=== PATIENT | female | born 1985 | race Caucasian/White ===

== ENCOUNTER 2024-04-18 19:37 | Emergency (ER) | payer MEDICARE, OTHER, SELFPAY ==
[2024-04-18 19:43] VITALS: BP 136/91
--- NOTE | 2024-04-18 20:11 | ED.GENMED ---
History of Present Illness
<Chema Pino PA-C - Last Filed: 04/20/24 17:59>
General
Chief Complaint: Crisis Evaluation
Source: patient and police
Time Seen by Provider: 04/18/24 20:03
Travel History
Have you had any contact with someone who has COVID-19?: No
Do you have any symptoms of coronavirus? Fever > 100 degrees, chills, cough, shortness of breath, sore throat, loss of taste or smell, muscle aches, or headache?: No
History of Present Illness
History of Present Illness:
38-year-old female with reported past medical history of bipolar disorder presenting to the emergency department with police after patient was found outside her house by her doing yoga naked in their front yard. Patient reportedly yelling
at multiple people and was not making sense. Family is filing a 302. Patient is not on any medications for psychiatric illness. Her only for this time is she is very hungry. No other physical concerns and she denies any alcohol or drug use
outside of her medical marijuana.
Past History
<Chema Pino PA-C - Last Filed: 04/20/24 17:59>
Past History
ED Past Medical History: Psychiatric and Other (PCOS, Peptic ulcers, Ovarian cyst, chronic neck and r shoulder pain on Vicodin)
ED Past Surgical History: and Other (Gastric bypass)
Social History
Tobacco: Non-smoker
Alcohol: Occasional
Drug: None
Personal: Single
Living: with family
Employment: Not employed
Review of Systems
<Chema Pino PA-C - Last Filed: 04/20/24 17:59>
Review of Systems
All Other Systems: ROS reviewed and negative except as documented in HPI and ROS
Phy Exam
<Chema Pino PA-C - Last Filed: 04/20/24 17:59>
Physical Exam
Physical Exam:
GENERAL: Alert , pacing in room, difficult time sitting still, very fidgety, rapid and pressured speech, appears manic
EYE: conjunctiva clear
NECK: Supple, no significant adenopathy.
ENT: o/p clr, mmm.
CARDIAC: Regular rate and rhythm
LUNGS: Clear breath sounds bilaterally, no acute respiratory distress, no wheezes/rales/rhonchi
NEUROLOGICAL: Alert and oriented
SKIN: Warm and dry, skin intact.
MUSCULOSKELETAL: well perfused.
PSYCH: Normal and appropriate interaction.
Scores
<Chema Pino PA-C - Last Filed: 04/20/24 17:59>
Heart Failure Risk
Heart Failure Risk Score: Not Applicable
Heart Score for Chest Pain Patients
STEMI patient?: Not applicable
Withdrawal Assessment of Alcohol
Withdrawal Assessment Completed?: Not applicable
Course
<Chema Pino PA-C - Last Filed: 04/20/24 17:59>
Orders/Labs/Results
Orders:
Orders
04/18/24 20:07
Ziprasidone [Geodon] 40 mg PO NOW STA
04/18/24 20:10
Crisis Consult Routine
Reason for Consult: 302. bipolar with valerio
Test Result ONCE
04/18/24 20:23
Olanzapine [Zyprexa] 10 mg IM NOW STA
04/18/24 20:24
Olanzapine [Zyprexa] 10 mg .ROUTE .STK-MED ONE
04/18/24 20:32
Alcohol Urgent
Complete Blood Count/With Diff Urgent
Comprehensive Metabolic Panel Urgent
HCG, Serum Qualitative Screen Urgent
Comment: ADD ON
04/18/24 20:38
Add On- LAB Urgent
Tests Added?: hcg qualitative
04/19/24 07:09
Potassium Chloride [KCl] 40 meq PO NOW STA
Abnormal Lab Results
04/18/24
20:32
Hct 34.7 L %
(37.0-47.0)
MCV 75.3 L fL
(81.0-99.0)
MCH 26.0 L pg
(27.0-31.0)
RDW 15.1 H %
(11.5-14.5)
Absolute Neuts (auto) 7.2 H 10^3/uL
(1.4-6.5)
Neutrophils % 76.7 H %
(42.2-75.2)
Lymphocytes % 16.3 L %
(20.5-51.1)
Potassium 2.8 L mmol/L
(3.5-5.1)
Carbon Dioxide 17 L mmol/L
(22-30)
BUN 18 H mg/dl
(7-17)
Creatinine 1.1 H mg/dL
(0.6-1.0)
Glucose 117 H mg/dl
(70-99)
AST 124 H U/L
(14-36)
ALT 65 H U/L
(0-35)
Albumin 5.1 H g/dl
(3.5-5.0)
04/18/24 20:32
04/18/24 20:32
Vital Signs
Initial and Last Documented VS:
Initial Vital Signs
Temp Pulse Resp BP Pulse Ox
99 F 68 16 136/91 97
04/18/24 19:43 04/18/24 19:43 04/18/24 19:43 04/18/24 19:43 04/18/24 19:43
Last Documented Vital Signs
Temp Pulse Resp BP Pulse Ox
99 F 82 20 146/90 97
04/18/24 19:43 04/19/24 06:59 04/19/24 06:59 04/19/24 06:59 04/18/24 19:43
<Maxine Cao MD - Last Filed: 04/19/24 01:33>
Orders/Labs/Results
Orders:
Orders
04/18/24 20:07
Ziprasidone [Geodon] 40 mg PO NOW STA
04/18/24 20:10
Crisis Consult Routine
Reason for Consult: 302. bipolar with valerio
Test Result ONCE
04/18/24 20:23
Olanzapine [Zyprexa] 10 mg IM NOW STA
04/18/24 20:24
Olanzapine [Zyprexa] 10 mg .ROUTE .STK-MED ONE
04/18/24 20:32
Alcohol Urgent
Complete Blood Count/With Diff Urgent
Comprehensive Metabolic Panel Urgent
HCG, Serum Qualitative Screen Urgent
Comment: ADD ON
04/18/24 20:38
Add On- LAB Urgent
Tests Added?: hcg qualitative
04/19/24 07:09
Potassium Chloride [KCl] 40 meq PO NOW STA
Abnormal Lab Results
04/18/24
20:32
Hct 34.7 L %
(37.0-47.0)
MCV 75.3 L fL
(81.0-99.0)
MCH 26.0 L pg
(27.0-31.0)
RDW 15.1 H %
(11.5-14.5)
Absolute Neuts (auto) 7.2 H 10^3/uL
(1.4-6.5)
Neutrophils % 76.7 H %
(42.2-75.2)
Lymphocytes % 16.3 L %
(20.5-51.1)
Potassium 2.8 L mmol/L
(3.5-5.1)
Carbon Dioxide 17 L mmol/L
(22-30)
BUN 18 H mg/dl
(7-17)
Creatinine 1.1 H mg/dL
(0.6-1.0)
Glucose 117 H mg/dl
(70-99)
AST 124 H U/L
(14-36)
ALT 65 H U/L
(0-35)
Albumin 5.1 H g/dl
(3.5-5.0)
04/18/24 20:32
04/18/24 20:32
Vital Signs
Initial and Last Documented VS:
Initial Vital Signs
Temp Pulse Resp BP Pulse Ox
99 F 68 16 136/91 97
04/18/24 19:43 04/18/24 19:43 04/18/24 19:43 04/18/24 19:43 04/18/24 19:43
Last Documented Vital Signs
Temp Pulse Resp BP Pulse Ox
99 F 82 20 146/90 97
04/18/24 19:43 04/19/24 06:59 04/19/24 06:59 04/19/24 06:59 04/18/24 19:43
<Chema Pino PA-C - Last Filed: 04/20/24 17:59>
MDM/Problems Addressed
Differential Diagnosis Includes:
Bipolar disorder with valerio, alcohol or drug ingestion, patient denying any suicidal ideations
MDM/Problems Addressed:
38-year-old female presenting emergency department with police with family filing a 302. Patient with history of bipolar disorder but is not currently on any medications. She certainly has the appearance of being manic at present time. Patient is
requesting something to help with her anxiety presently. She is having a difficult time sitting still in the room. Will give a dose of p.o. Geodon for agitation. Crisis team was notified and they are in the process of filing the 302 presently.
Chronic conditions affecting care: Psychiatric illness
Acute Exacerbation and/or Progression of Chronic Illness: Psychiatric illness
<Chema Pino PA-C - Last Filed: 04/20/24 17:59>
*Pulse Oximetry
Patient hypoxic: no
*Critical Care Note
Total Time (30-74mins, 75-104mins- exclusive of procedures): Not Applicable
<Chema Pino PA-C - Last Filed: 04/20/24 17:59>
Comment
Comment:
8:24 PM: Patient verbally aggressive with nursing staff while attempting IV stick. Unable to get labs at this time. Due to patient's agitation oral medication was discontinued and will trial IM Zyprexa. If patient continues with her verbal
escalation as well as physical threats may require restraints. Reassessment following medication
8:49 PM: Patient was redirectable and allowed for blood draw. She still appears manic and having a difficult time sitting but is declining meds. Will have low threshold to still order medication. Awaiting telepsych consultation
ED Attending Note
<Chema Pino PA-C - Last Filed: 04/20/24 17:59>
-
Portions of this chart may have been created with voice recognition software.� Occasional wrong word or��sound alike� substitutions may have occurred due to the inherent limitations of voice recognition software.
<Maxine Cao MD - Last Filed: 04/19/24 01:33>
ED Attending Note
Patient seen and examined by attending physician: Yes
I performed the substantive portion of visit, reviewed & personally made and approve the management plan that is documented in note by myself or LUIS EDUARDO.: Yes
ED Attending Note:
302 upheld by me status post telehealth evaluation, we are both in agreement with mother's concerns regarding patient's erratic behavior. Recommend inpatient gastric care. Patient stable at this time and behaviorally cooperative.
Discharge Plan
Departure
Patient Disposition: Psych Facility
Date of Disposition: 04/19/24
Time of Disposition: 01:32
Condition: Fair
Discharge Problem:
VALERIO
Prescriptions:
No Action
acetaminophen 325 MG tablet
650 mg PO Q4HPRN PRN (Reason: mild pain) 0RF
ibuprofen 600 MG tablet
600 mg PO Q4HPRN PRN (Reason: cramps) 0RF
hydromorphone 2 MG tablet
2 mg PO Q4HPRN PRN (Reason: moderate pain) Qty: 20 0RF
clindamycin HCl 300 mg capsule
300 mg PO TID 10 Days Qty: 30 0RF
hydrocodone-acetaminophen 5-325 mg tablet
1 tab PO BID PRN (Reason: pain) Qty: 14 0RF
Referrals:
UNKNOWN - PT DOES,NOT KNOW [Family Provider] -
Interventions
Interventions:
*Risk Screen - Suicide Last Done: 04/18/24 19:47
*General Assessment Last Done: 04/18/24 19:46
*Neglect/Abuse Screening Last Done: 04/18/24 19:47
ED- Fall Risk Assessment Last Done: 04/19/24 10:31
*ED COVID-19 Vaccine History Last Done: 04/18/24 19:46
*Nursing Disposition Last Done: 04/19/24 14:35
ED-Psychological Assessment Last Done: 04/19/24 06:59
Discharge Date and Time
Discharge Date/Time: 04/19/24 14:36
Print Language: VIET[place]ESE
[2024-04-18 20:37] LABS: % Basophils 0.3 % (0-2); % Immature Granulocytes 0.2 % (0-0.5); % Lymphocytes 16.3 % (20.5-51.1); % Monocytes 6.5 % (1.7-9.3); % Neutrophils 76.7 % (42.2-75.2); Absolute Lymphocytes 1.5 10^3/uL (1.2-3.4); Absolute Monocytes 0.6 10^3/uL (0.1-0.6); Absolute Neutrophils 7.2 10^3/uL (1.4-6.5); Hematocrit 34.7 % (37.0-47.0); Mean Corp Hgb Conc. 34.6 g/dL (33.0-37.0); Mean Corpuscular Volume 75.3 fL (81.0-99.0); Mean Platelet Volume 9.9 fL (7.4-10.4); Nucleated Red Blood Cells % 0 %; Platelet Count 319 10^3/uL (130-400); Red Blood Cell Count 4.61 10^6/uL (4.20-5.40); Red Cell Dist. Width 15.1 % (11.5-14.5); White Blood Cell Count 9.4 10^3/uL (4.8-10.8)
--- NOTE | 2024-04-18 20:38 | EDRN ---
Pt became very aggitated at an attempt to draw blood, became verbally abusive and physically threatening. After some time pt decided to cooperate instead of being medicated with Zyprexa, pt still refused to have blood drawn by this RN, a different
RN was allowed to draw blood.
[2024-04-18 20:51] LABS: HCG, Serum Qualitative Screen Negative
[2024-04-18 21:02] LABS: ALT (SGPT) 65 U/L (0-35); AST (SGOT) 124 U/L (14-36); Albumin 5.1 g/dl (3.5-5.0); Alkaline Phosphatase 71 U/L (38-126); Blood Urea Nitrogen 18 mg/dl (7-17); Calcium 9.8 mg/dl (8.4-10.2); Carbon Dioxide 17 mmol/L (22-30); Chloride 103 mmol/L (98-107); Glucose 117 mg/dl (70-99); Potassium 2.8 mmol/L (3.5-5.1); Sodium 138 mmol/L (135-145); Total Bilirubin 1.3 mg/dl (0.2-1.3); eGFR > 60.00
[2024-04-18 21:11] LABS: Alcohol None Detected
[2024-04-19 06:59] VITALS: BP 146/90
== END 2024-04-19 14:36 ==
LOC: EMR 19:37
PROVIDERS: Physician Assistant Medical; EMERGENCY PHYSICIAN Emergency Medicine
DX: F30.9 Manic episode, unspecified (principal); R45.1 Restlessness and agitation; F31.9 Bipolar disorder, unspecified; E28.2 Polycystic ovarian syndrome; F41.9 Anxiety disorder, unspecified; Z87.11 Personal history of peptic ulcer disease; Z98.84 Bariatric surgery status; Z88.2 Allergy status to sulfonamides
CPT/HCPCS: 99285; 80053; 82077; 84703; 85025; J2358

== ENCOUNTER 2024-06-08 06:38 | Emergency (ER) | payer OTHER, SELFPAY ==
[2024-06-08 06:54] VITALS: BP 130/80
--- NOTE | 2024-06-08 07:54 | ED.GENMED ---
History of Present Illness
General
Chief Complaint: Anxiety
Time Seen by Provider: 06/08/24 07:33
History of Present Illness
History of Present Illness:
30 female with history of PTSD presents to the emergency department for anxiety of a myriad of complaints. She notes heart palpitations or jumping on a trampoline yesterday. She is also quite tangential with speech describing stress related to her
dogs being injured in a dog fight yesterday. She also endorses stress with having 4 kids and reports that her is not involved. She does have chronic opioids and feeling splint and is any other illicit substances
Past History
Past History
ED Past Medical History: Psychiatric and Other (PCOS, Peptic ulcers, Ovarian cyst, chronic neck and r shoulder pain on Vicodin)
ED Past Surgical History: and Other (Gastric bypass)
Social History
Tobacco: Non-smoker
Alcohol: Occasional
Drug: None
Personal: Single
Living: with family
Employment: Not employed
Review of Systems
Review of Systems
Allergies reviewed?: Yes
All Other Systems: ROS reviewed and negative except as documented in HPI and ROS
Phy Exam
Physical Exam
Physical Exam:
GEN: Well appearing, NAD, WDWN
HEENT: Oral mucosa moist, no scleral icterus
Cardiac: Regular rate and rhythm, no murmurs
Lung: No respiratory distress, no tachypnea
MSK: No gross deformity or injuries
Skin: Good color, no pallor or jaundice, no rashes
Neuro: AO x3, moves all extremities freely
Psych: Anxious appearing, tangential speech pattern, not responding to internal stimuli
Course
Orders/Labs/Results
Orders:
Orders
06/08/24 07:53
Electrocardiogram (*1) Urgent
Reason for Study: Palpitations
06/08/24 07:54
EKG- Treatment ONCE
Test Result ONCE
06/08/24 09:38
HCG, Urine Qualitative Screen Urgent
Date Specimen was Collected: 06/08/24
Time Specimen was Collected: 09:37
Vital Signs
Initial and Last Documented VS:
Initial Vital Signs
Temp Pulse Resp BP Pulse Ox
98.1 F 88 18 130/80 98
06/08/24 06:54 06/08/24 06:54 06/08/24 06:54 06/08/24 06:54 06/08/24 06:54
Last Documented Vital Signs
Temp Pulse Resp BP Pulse Ox
98.1 F 94 19 123/94 100
06/08/24 06:54 06/08/24 08:00 06/08/24 08:00 06/08/24 08:00 06/08/24 08:00
MDM/Problems Addressed
MDM/Problems Addressed:
EKG is reassuring, patient requested urine test because she is late on her period and this was negative. She is clinically quite anxious but not in extremis, no indications for crisis consult at this time. She does have an outpatient
therapist.
*Critical Care Note
Total Time (30-74mins, 75-104mins- exclusive of procedures): Not Applicable
ED Attending Note
-
Portions of this chart may have been created with voice recognition software.� Occasional wrong word or��sound alike� substitutions may have occurred due to the inherent limitations of voice recognition software.
Discharge Plan
Departure
Patient Disposition: Home (Routine Discharge)
Date of Disposition: 06/08/24
Time of Disposition: 10:06
Patient with high blood pressure during this ER visit?: No
Discharge Problem:
Heart palpitations, Anxiety in acute stress reaction
Instructions: Anxiety, Adult (DC)
Prescriptions:
No Action
acetaminophen 325 MG tablet
650 mg PO Q4HPRN PRN (Reason: mild pain) 0RF
ibuprofen 600 MG tablet
600 mg PO Q4HPRN PRN (Reason: cramps) 0RF
hydromorphone 2 MG tablet
2 mg PO Q4HPRN PRN (Reason: moderate pain) Qty: 20 0RF
clindamycin HCl 300 mg capsule
300 mg PO TID 10 Days Qty: 30 0RF
hydrocodone-acetaminophen 5-325 mg tablet
1 tab PO BID PRN (Reason: pain) Qty: 14 0RF
Referrals:
Sylvester Cotto MD [Family Provider] -
Interventions
Interventions:
*Risk Screen - Suicide Last Done: 06/08/24 06:54
*General Assessment Last Done: 06/08/24 06:54
*Neglect/Abuse Screening Last Done: 06/08/24 06:54
ED- Fall Risk Assessment Last Done: 06/08/24 08:05
*ED COVID-19 Vaccine History Last Done: 06/08/24 06:54
*Nursing Disposition Last Done: 06/08/24 10:18
ED-Psychological Assessment Last Done: 06/08/24 08:05
Discharge Date and Time
Print Language: BENGAL[place]
[2024-06-08 07:57] VITALS: BMI 36.5
[2024-06-08 08:00] VITALS: BP 123/94
[2024-06-08 10:02] LABS: HCG, Urine Qualitative Screen Negative
--- NOTE | 2024-06-08 10:15 | EDRN ---
Reviewed discharge instructions with patient. Verbalized understanding. Ambulated with steady gait to the lobby.
[2024-06-08 10:18] VITALS: BP 136/86
== END 2024-06-08 10:15 | disposition home or self-care (01) ==
LOC: EMR 06:38
PROVIDERS: Physician Assistant; EMERGENCY PHYSICIAN Emergency Medicine; FAMILY PHYSICIAN Physical Medicine & Rehabilitation Pain Medicine
DX: R00.2 Palpitations (principal); F43.0 Acute stress reaction; F41.9 Anxiety disorder, unspecified
CPT/HCPCS: 99283; 81025; 93005

== ENCOUNTER 2024-06-10 11:30 | Emergency (ER) | payer OTHER, SELFPAY ==
[2024-06-10 11:34] VITALS: BP 119/105
[2024-06-10 12:24] LABS: % Basophils 0.4 % (0-2); % Eosinophils 1.1 % (0-6); % Immature Granulocytes 0.4 % (0-0.5); % Monocytes 7.1 % (1.7-9.3); Absolute Eosinophils 0.1 10^3/uL (0-0.7); Absolute Lymphocytes 2.2 10^3/uL (1.2-3.4); Absolute Monocytes 0.8 10^3/uL (0.1-0.6); Absolute Neutrophils 7.3 10^3/uL (1.4-6.5); Hematocrit 36.6 % (37.0-47.0); Hemoglobin 12.5 g/dL (12.0-16.0); Mean Corp Hgb Conc. 34.2 g/dL (33.0-37.0); Mean Corpuscular Hgb 25.9 pg (27.0-31.0); Mean Corpuscular Volume 75.8 fL (81.0-99.0); Mean Platelet Volume 9.9 fL (7.4-10.4); Nucleated Red Blood Cells % 0 %; Platelet Count 397 10^3/uL (130-400); Red Blood Cell Count 4.83 10^6/uL (4.20-5.40); Red Cell Dist. Width 15.9 % (11.5-14.5); White Blood Cell Count 10.5 10^3/uL (4.8-10.8)
[2024-06-10 12:33] LABS: HCG, Serum Qualitative Screen Negative
[2024-06-10 12:41] LABS: ALT (SGPT) 37 U/L (0-35); AST (SGOT) 36 U/L (14-36); Albumin 4.8 g/dl (3.5-5.0); Alkaline Phosphatase 91 U/L (38-126); Blood Urea Nitrogen 11 mg/dl (7-17); Carbon Dioxide 23 mmol/L (22-30); Chloride 109 mmol/L (98-107); Glucose 110 mg/dl (70-99); Potassium 3.9 mmol/L (3.5-5.1); Sodium 141 mmol/L (135-145); Total Bilirubin 0.9 mg/dl (0.2-1.3); Total Protein 7.6 g/dl (6.3-8.2); eGFR > 60.00
--- NOTE | 2024-06-10 12:46 | ED.GENMED ---
History of Present Illness
General
Chief Complaint: Psychiatric Problem
Source: patient and ambulance crew
Exam Limitations: none
Time Seen by Provider: 06/10/24 12:35
Nursing documentation reviewed up to this point in time: agreed with
History of Present Illness
History of Present Illness:
38-year-old female presents to the emergency department due to reported manic episode by EMS. Per EMS patient was found in the street. CPS picked up her children today due to manic behavior. She is a poor historian. She reports her is
homeless and called 911. She was seen yesterday due to anxiety.
Past History
Past History
ED Past Medical History: Psychiatric and Other (PCOS, Peptic ulcers, Ovarian cyst, chronic neck and r shoulder pain on Vicodin)
ED Past Surgical History: and Other (Gastric bypass)
Social History
Tobacco: Non-smoker
Alcohol: Occasional
Drug: None
Personal: Single
Living: with family
Employment: Not employed
Review of Systems
Review of Systems
Allergies reviewed?: Yes
All Other Systems: Not applicable
Constitutional: Reports no symptoms
EENT: Reports no symptoms
Respiratory: Reports no symptoms
Cardiac: Reports no symptoms
ABD/GI: Reports no symptoms
: Reports flank pain
Musculoskeletal: Reports no symptoms
Skin: Reports no symptoms
Neurological: Reports no symptoms
Endocrine: Reports no symptoms
Hematologic/Lymphatic: Reports no symptoms
Psychiatric: Reports no symptoms
Phy Exam
Physical Exam
Physical Exam:
Physical Exam
General: Afebrile
Neck: supple. no meningeal signs. normal posterior pharynx
Heart: s1/s2 regular rate and rhythm, no murmur. equal radial
pulses.
HEENT: Pupils equal round reactive to light, EOMI
Lungs: no acute respiratory distress. clear bilaterally
Abdomen: normal bowel sounds. not tender. no CVAT
Neuro: alert and oriented. no focal neurological deficits cranial nerves II through XII intact
Skin: no rash
Psychiatric: well kept. interactive and cooperative, tangential thought process, difficulty focusing
Extremities: no edema. no calf tenderness. negative homans. good distal pulses
Course
Orders/Labs/Results
Orders:
Orders
06/10/24
Electrocardiogram (*1) Stat
Reason for Study: Chest Pain
Comment: DONE
06/10/24 11:32
Test Result ONCE
06/10/24 11:48
Test Result ONCE
06/10/24 11:58
Acetaminophen Urgent
Comment: ADD ON
Alcohol Urgent
Complete Blood Count/With Diff Urgent
Comprehensive Metabolic Panel Urgent
HCG, Serum Qualitative Screen Urgent
Salicylate Urgent
Comment: ADD ON
Urinalysis Reflex To Culture Urgent
Date Specimen was Collected: 06/10/24
Time Specimen was Collected: 11:48
06/10/24 12:42
PSYCHIATRY CONSULT Urgent
Consulting Provider: Jatinder Sandhu
Was physician already notified: Yes
Reason for consult: manic episode
Crisis Consult Urgent
Reason for Consult: manic episode
06/10/24 12:45
Add On- LAB Urgent
Tests Added?: alcohol, acetaminophen, salicylate
06/10/24 13:37
Urine Drug Abuse Screen Urgent
Date Specimen was Collected: 06/10/24
Time Specimen was Collected: 13:36
Abnormal Lab Results
06/10/24 06/10/24
11:58 13:37
Hct 36.6 L %
(37.0-47.0)
MCV 75.8 L fL
(81.0-99.0)
MCH 25.9 L pg
(27.0-31.0)
RDW 15.9 H %
(11.5-14.5)
Absolute Neuts (auto) 7.3 H 10^3/uL
(1.4-6.5)
Absolute Monos (auto) 0.8 H 10^3/uL
(0.1-0.6)
Chloride 109 H mmol/L
(98-107)
Glucose 110 H mg/dl
(70-99)
ALT 37 H U/L
(0-35)
Salicylates < 1.0 L mg/dl
(2.0-20.0)
Acetaminophen < 10 L ug/ml
(10-30)
U Marijuana (THC) Screen Positive H
(Negative)
06/10/24 11:58
06/10/24 11:58
Vital Signs
Initial and Last Documented VS:
Initial Vital Signs
Temp Pulse Resp BP Pulse Ox
98.8 F 94 21 119/105 97
06/10/24 11:34 06/10/24 11:34 06/10/24 11:34 06/10/24 11:34 06/10/24 11:34
Last Documented Vital Signs
Temp Pulse Resp BP Pulse Ox
98 F 110 22 138/88 98
06/10/24 16:10 06/10/24 16:10 06/10/24 16:10 06/10/24 16:10 06/10/24 16:10
MDM/Problems Addressed
Differential Diagnosis Includes:
Bipolar manic
MDM/Problems Addressed:
38-year-old female with bipolar manic episode, seen by psychiatry, 302 filed by , 302 not upheld [place]. No indication for admission or involuntary hospitalization.
Chronic conditions affecting care: Psychiatric illness (Bipolar)
Acute Exacerbation and/or Progression of Chronic Illness: Psychiatric illness (Bipolar)
*Pulse Oximetry
Patient hypoxic: no
*EKG
Interpreted by ED Provider?: Yes
EKG Intrepretation Date: 06/10/24
EKG Intrepretation Time: 11:44
Interpretation: normal
Comparison EKG: no comparison EKG present
Heart Rate: 92
Rate: normal
Rhythm: sinus
[place]: normal axis
Interval: normal interval
QRS Pattern: normal QRS
Ischemia: no ischemia
*Energy Trading Analyst Interpretation
Rate: Energy Trading Analyst- N/A
*Critical Care Note
Total Time (30-74mins, 75-104mins- exclusive of procedures): Not Applicable
Patient Management
Social determinants of health affecting care: Living situation
Discussion with other providers: [place] (Psychiatrist Dr. Sandhu)
Escalation/DeEscalation of care consider admission/obs:
Admit not indicated
ED Attending Note
-
Portions of this chart may have been created with voice recognition software.� Occasional wrong word or��sound alike� substitutions may have occurred due to the inherent limitations of voice recognition software.
Discharge Plan
Departure
Patient Disposition: Home (Routine Discharge)
Date of Disposition: 06/10/24
Time of Disposition: 17:08
Patient with high blood pressure during this ER visit?: Yes
Condition: Good
Discharge Problem:
Bipolar 1 disorder, manic, mild
Instructions: Bipolar Disorder (DC)
Prescriptions:
No Action
acetaminophen 325 MG tablet
650 mg PO Q4HPRN PRN (Reason: mild pain) 0RF
ibuprofen 600 MG tablet
600 mg PO Q4HPRN PRN (Reason: cramps) 0RF
hydromorphone 2 MG tablet
2 mg PO Q4HPRN PRN (Reason: moderate pain) Qty: 20 0RF
clindamycin HCl 300 mg capsule
300 mg PO TID 10 Days Qty: 30 0RF
hydrocodone-acetaminophen 5-325 mg tablet
1 tab PO BID PRN (Reason: pain) Qty: 14 0RF
Referrals:
Sylvester Cotto MD [Family Provider] -
Jatinder Sandhu MD [Active] - Call in 1-3 days for appt
Activity Restrictions/Additional Instructions:
Follow up with your psychiatrist. Return for any concerns.
Interventions
Interventions:
*Risk Screen - Suicide Last Done: 06/10/24 11:51
*General Assessment Last Done: 06/10/24 11:34
*Neglect/Abuse Screening Last Done: 06/10/24 11:51
ED- Fall Risk Assessment Last Done: 06/10/24 17:28
*ED COVID-19 Vaccine History Last Done: 06/10/24 11:51
*Nursing Disposition Last Done: 06/10/24 17:28
ED-Psychological Assessment Last Done: 06/10/24 12:17
Discharge Date and Time
Discharge Date/Time: 06/10/24 17:31
Print Language: [place]
[2024-06-10 14:33] LABS: Urine Albumin Trace (Neg - Trace); Urine Bilirubin Negative (Negative); Urine Character Clear (Clear); Urine Color Yellow; Urine Glucose Negative (Negative); Urine Ketone Negative (Negative); Urine Leukocyte Negative (Negative); Urine Nitrite Negative (Negative); Urine Occult Blood Negative (Negative); Urine Urobilinogen Negative (Neg - 1+)
[2024-06-10 14:53] LABS: Amphetamines Negative (Negative); Barbiturates Negative (Negative); Benzodiazepines Negative (Negative); Buprenorphine Negative (Negative); Cocaine Negative (Negative); Methadone Negative (Negative); Methamphetamines Negative (Negative); Opiates Negative (Negative); Phencyclidine Negative (Negative)
[2024-06-10 14:54] LABS: Marijuana Positive (Negative); Tricyclic Antidepressants Negative (Negative)
[2024-06-10 16:10] VITALS: BP 138/88
--- NOTE | 2024-06-10 16:39 | W.PN.UPDATE ---
Update Note
Progress Note Update
Pt seen and reviewed with Crisis staff. Pt presents mildly verbally agitated, cursing, labile. Pt is not threatening. She complains that she 'had a moment.' Pt states she slept okay last night. She c/o issues with her . Pt states she has
PCOS, PTSD, panic d/o, Afib. Pt also states she his '8 weeks ', although urine HCG was negative 2 days ago in the ER. Crisis staff notes recent history of mood instability, seen in April 2024, CYS involved with pt's children. Crisis
staff spoke to , who is reportedly filing a 302 petition.
Imp: Unspecified mood d/o; R/o Bipolar d/o, manic
Rec: Will follow up the outcome of 302 petition by ; pt will need tele-psych eval
will follow
[2024-06-10 17:38] LABS: Salicylate < 1.0 mg/dl (2.0-20.0)
[2024-06-10 17:42] LABS: Alcohol None Detected
[2024-06-10 17:44] LABS: Acetaminophen < 10 ug/ml (10-30)
== END 2024-06-10 17:31 | disposition home or self-care (01) ==
LOC: EMR 11:30
PROVIDERS: Emergency Medicine; CONSULT PHYSICIAN Psychiatry & Neurology Psychiatry; EMERGENCY PHYSICIAN Emergency Medicine; FAMILY PHYSICIAN Physical Medicine & Rehabilitation Pain Medicine
DX: F31.11 Bipolar disorder, current episode manic without psychotic features, mild (principal); R03.0 Elevated blood-pressure reading, without diagnosis of hypertension; E28.2 Polycystic ovarian syndrome; M54.2 Cervicalgia; M25.511 Pain in right shoulder; I48.91 Unspecified atrial fibrillation; F41.9 Anxiety disorder, unspecified; D50.9 Iron deficiency anemia, unspecified; G89.29 Other chronic pain; Z98.84 Bariatric surgery status; Z87.11 Personal history of peptic ulcer disease; Z87.891 Personal history of nicotine dependence; Z88.2 Allergy status to sulfonamides; Z88.8 Allergy status to other drugs, medicaments and biological substances
CPT/HCPCS: 99284; 80053; 80143; 80179; 80306; 81003; 82077; 84703; 85025; 93005

== ENCOUNTER 2024-06-11 16:25 | Emergency (ER) | payer OTHER, SELFPAY ==
[2024-06-11 16:30] VITALS: BP 160/86
[2024-06-11 16:34] VITALS: BMI 28.3
[2024-06-11] MEDS: TYLENOL 500 MG PO (17:15)
--- NOTE | 2024-06-11 17:33 | ED.GENMED ---
History of Present Illness
General
Chief Complaint: Crisis Evaluation
Time Seen by Provider: 06/11/24 16:42
History of Present Illness
History of Present Illness:
38-year-old female with history of bipolar disorder and anxiety presenting under 302 for psychotic behavior. Patient was 302-ed by family for concern of inability care for self. Patient was seen in the hospital yesterday for similar behavior,
however after being seen by telepsych, 302 was not upheld. Family continues to express concern for patient's behavior. Patient limited historian, tangential speech. Denies acute medical complaints.
Past History
Past History
ED Past Medical History: Psychiatric and Other (PCOS, Peptic ulcers, Ovarian cyst, chronic neck and r shoulder pain on Vicodin)
ED Past Surgical History: and Other (Gastric bypass)
Social History
Tobacco: Non-smoker
Alcohol: Occasional
Drug: None
Personal: Single
Living: with family
Employment: Not employed
Phy Exam
Physical Exam
Physical Exam:
General: No acute distress
HEENT: protecting airway
Neck: appears supple
CV: Normal heart rate, regular rhythm
Resp: No accessory muscle use, no increased work of breathing
Abd: Soft and non-distended
Extremities: No deformities, no swelling, no erythema
Neuro: alert, no focal neurologic deficit
: deferred
Rectal: deferred
Psych: Tangential speech, flight of ideas
Skin: Intact
Course
Orders/Labs/Results
Orders:
Orders
06/11/24 17:10
Acetaminophen [Tylenol] 500 mg PO NOW STA
MDM/Problems Addressed
MDM/Problems Addressed:
38-year-old female with history of bipolar disorder and anxiety presenting for psychotic behavior, under 302. Vital signs within normal limits.
Patient does not appear to be acutely psychotic, tangential speech, flight of ideas. Patient with bizarre affect, strange behavior. Do feel 302 was warranted, we will hold. Crisis is also involved, as well as telepsych. Plan for inpatient
placement.
*Critical Care Note
Total Time (30-74mins, 75-104mins- exclusive of procedures): Not Applicable
ED Attending Note
-
Portions of this chart may have been created with voice recognition software.� Occasional wrong word or��sound alike� substitutions may have occurred due to the inherent limitations of voice recognition software.
Discharge Plan
Departure
Prescriptions:
No Action
acetaminophen 325 MG tablet
650 mg PO Q4HPRN PRN (Reason: mild pain) 0RF
ibuprofen 600 MG tablet
600 mg PO Q4HPRN PRN (Reason: cramps) 0RF
hydromorphone 2 MG tablet
2 mg PO Q4HPRN PRN (Reason: moderate pain) Qty: 20 0RF
clindamycin HCl 300 mg capsule
300 mg PO TID 10 Days Qty: 30 0RF
hydrocodone-acetaminophen 5-325 mg tablet
1 tab PO BID PRN (Reason: pain) Qty: 14 0RF
Referrals:
UNKNOWN,NO INTERVIEW [Family Provider] -
Interventions
Interventions:
*Risk Screen - Suicide Last Done: 06/11/24 16:30
*General Assessment Last Done: 06/11/24 16:30
*Neglect/Abuse Screening Last Done: 06/11/24 16:30
ED- Fall Risk Assessment Last Done: 06/11/24 16:30
*ED COVID-19 Vaccine History Last Done: 06/11/24 17:08
ED-Psychological Assessment Last Done: 06/11/24 16:30
Discharge Date and Time
Print Language: NOR[place]
[2024-06-11 22:10] VITALS: BP 144/91
== END 2024-06-12 00:08 ==
LOC: EMR 16:25
PROVIDERS: EMERGENCY PHYSICIAN Student in an Organized Health Care Education/Training Program
DX: F31.9 Bipolar disorder, unspecified (principal); F41.9 Anxiety disorder, unspecified; E28.2 Polycystic ovarian syndrome; Z87.11 Personal history of peptic ulcer disease; Z98.84 Bariatric surgery status
CPT/HCPCS: 99282

== ENCOUNTER 2024-07-04 11:47 | Emergency (ER) | payer OTHER, SELFPAY ==
[2024-07-04 11:50] VITALS: BP 102/90; BMI 34.6
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
[2024-07-04 15:00] LABS: HCG, Urine Qualitative Screen Negative
[2024-07-04 15:12] VITALS: BP 141/86
--- NOTE | 2024-07-04 15:14 | EDRN ---
Pt is refusing all care including crisis evaluation. Suzi MOELLER is discharging pt. Pt is ambulating and moving w/ ease, no whincing or limping or favoring of any area.
--- NOTE | 2024-07-04 15:17 | EDRN ---
[employer] is leaving w/ pt and spouse and child in room at this time. [facility] has arranged for daytime child care centre manager not to be w/ mother alone.
== END 2024-07-04 15:20 | disposition home or self-care (01) ==
LOC: EMR 11:47
PROVIDERS: Physician Assistant; EMERGENCY PHYSICIAN Student in an Organized Health Care Education/Training Program
DX: N93.9 Abnormal uterine and vaginal bleeding, unspecified (principal); M25.511 Pain in right shoulder; M25.512 Pain in left shoulder; T76.21XA Adult sexual abuse, suspected, initial encounter; F31.9 Bipolar disorder, unspecified; F43.10 Post-traumatic stress disorder, unspecified; R56.9 Unspecified convulsions; G89.29 Other chronic pain; E28.2 Polycystic ovarian syndrome; N83.209 Unspecified ovarian cyst, unspecified side; Z98.84 Bariatric surgery status; Z87.11 Personal history of peptic ulcer disease; Z91.012 Allergy to eggs; Z88.2 Allergy status to sulfonamides; Z88.8 Allergy status to other drugs, medicaments and biological substances; Z91.018 Allergy to other foods
CPT/HCPCS: 99283; 73030; 81025

== ENCOUNTER 2024-07-17 23:41 | Emergency (ER) | payer OTHER, SELFPAY ==
[2024-07-17 23:43] VITALS: BP 160/94
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
[2024-07-18 00:30] VITALS: BMI 35.2
[2024-07-18 00:40] LABS: % Basophils 0.2 % (0-2); % Eosinophils 0.2 % (0-6); % Lymphocytes 10.8 % (20.5-51.1); % Monocytes 2.5 % (1.7-9.3); % Neutrophils 84.3 % (42.2-75.2); Absolute Immature Granulocytes 0.2 10^3/uL (0-0.05); Absolute Lymphocytes 1.3 10^3/uL (1.2-3.4); Absolute Monocytes 0.3 10^3/uL (0.1-0.6); Absolute Neutrophils 9.9 10^3/uL (1.4-6.5); Hematocrit 36.3 % (37.0-47.0); Hemoglobin 11.9 g/dL (12.0-16.0); Mean Corp Hgb Conc. 32.8 g/dL (33.0-37.0); Mean Corpuscular Hgb 25.3 pg (27.0-31.0); Mean Corpuscular Volume 77.1 fL (81.0-99.0); Mean Platelet Volume 9.7 fL (7.4-10.4); Nucleated Red Blood Cells % 0 %; Platelet Count 364 10^3/uL (130-400); Red Blood Cell Count 4.71 10^6/uL (4.20-5.40); White Blood Cell Count 11.7 10^3/uL (4.8-10.8)
[2024-07-18 00:46] LABS: HCG, Serum Qualitative Screen Negative
[2024-07-18 00:50] LABS: AST (SGOT) 38 U/L (14-36); Albumin 4.8 g/dl (3.5-5.0); Alkaline Phosphatase 79 U/L (38-126); Blood Urea Nitrogen 19 mg/dl (7-17); Calcium 9.7 mg/dl (8.4-10.2); Carbon Dioxide 19 mmol/L (22-30); Chloride 105 mmol/L (98-107); Glucose 158 mg/dl (70-99); Potassium 3.8 mmol/L (3.5-5.1); Sodium 143 mmol/L (135-145); Total Bilirubin 0.4 mg/dl (0.2-1.3); Total Protein 7.6 g/dl (6.3-8.2); eGFR > 60.00
[2024-07-18 01:00] LABS: ALT (SGPT) 39 U/L (0-35)
[2024-07-18 01:02] LABS: Troponin I < 0.012 ng/ml
[2024-07-18 01:20] VITALS: BP 145/87
== END 2024-07-18 01:20 | disposition home or self-care (01) ==
LOC: EMR 23:41
PROVIDERS: Clinical Nurse Specialist Family Health; EMERGENCY PHYSICIAN Emergency Medicine
DX: F41.9 Anxiety disorder, unspecified (principal); R07.9 Chest pain, unspecified; R11.2 Nausea with vomiting, unspecified; R19.7 Diarrhea, unspecified; R51.9 Headache, unspecified; R03.0 Elevated blood-pressure reading, without diagnosis of hypertension; E86.0 Dehydration; M54.2 Cervicalgia; M25.511 Pain in right shoulder; F17.200 Nicotine dependence, unspecified, uncomplicated; F90.9 Attention-deficit hyperactivity disorder, unspecified type; I48.91 Unspecified atrial fibrillation; R56.9 Unspecified convulsions; F31.9 Bipolar disorder, unspecified; F42.9 Obsessive-compulsive disorder, unspecified; F43.10 Post-traumatic stress disorder, unspecified; F41.0 Panic disorder [episodic paroxysmal anxiety]; D50.9 Iron deficiency anemia, unspecified; G89.29 Other chronic pain; Z87.11 Personal history of peptic ulcer disease; Z98.84 Bariatric surgery status; Z91.012 Allergy to eggs; Z88.2 Allergy status to sulfonamides; Z88.8 Allergy status to other drugs, medicaments and biological substances; Z91.018 Allergy to other foods
CPT/HCPCS: 99283; 80053; 84484; 84703; 85025; 93005